=== PATIENT | male | born 1980 | race Caucasian/White ===

== ENCOUNTER 2020-04-10 13:11 | Emergency (ER) | payer OTHER, SELFPAY ==
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
[2020-04-10 13:29] VITALS: BP 134/85; PULSE 101; RESP 20; TEMP 37.3; O2SAT 98; BMI 26.4
--- NOTE | 2020-04-10 14:13 | PC.NURSE ---
Pt difficult stick r/t IVDA, joe furnace repairer helper at bedside to attempt EJ
[2020-04-10] MEDS: 0.9 % Sodium Chloride 1,000 ML 999 ML IV (14:24)
[2020-04-10 14:25] LABS: MANUAL DIFF FLAG NO
--- NOTE | 2020-04-10 14:29 | PC.NURSE ---
Mike LICENSING REPRESENTATIVE placed 20g R bicep via u/s
[2020-04-10 14:34] LABS: INTERNATIONAL NORM RATIO 1.1 (0.9-1.1); Prothrombin Time 12.5 SEC (10.8-13.0)
[2020-04-10 14:35] LABS: Basophils Absolute Auto 0.1 X10*3/uL (0.0-0.2); Basophils Percent Auto 0.5 % (0-2); Eosinophils Percent Auto 0.2 % (0-4); Hematocrit 43.1 % (42-52); Hemoglobin 13.8 g/dl (14.0-18.0); Imm Gran Abs Auto 0.03 X10*3/uL (0.00-0.03); Imm Gran Pct Auto 0.3 % (0.0-0.4); Lymphocytes Absolute Auto 2.3 X10*3/uL (1.2-4.9); Lymphocytes Percent Auto 23.7 % (20-40); Mean Corpuscular Hemoglobin 27.5 pg (27.0-33.0); Mean Platelet Volume 9.8 fL (9.4-12.4); Monocytes Absolute Auto 0.6 X10*3/uL (0.1-1.2); Monocytes Percent Auto 6.2 % (2-11); Neutrophils Absolute Auto 6.8 X10*3/uL (2.0-8.3); Neutrophils Percent Auto 69.1 % (45-73); Platelet Count 272 X10*3/uL (160-400); Red Blood Count 5.01 X10*6/uL (4.60-5.80); Red Cell Distribution Width 14.4 % (11.0-16.0); White Blood Count 9.8 X10*3/uL (4.8-10.8)
[2020-04-10 14:37] LABS: Partial Thromboplastin Time 35.7 SEC (24.1-38.0)
[2020-04-10] MEDS: Acetaminophen 325 MG TABLET 650 MG PO (14:41)
[2020-04-10 14:49] LABS: Alanine Aminotransferase 15 U/L (0-40); Albumin Level 4.1 g/dL (3.5-5.0); Alkaline Phosphatase 97 U/L (39-117); Anion Gap 13 (12-20); Aspartate Amino Transferase 26 U/L (5-37); Bilirubin Total 0.2 mg/dL (0.0-1.0); Blood Urea Nitrogen 12 mg/dL (9-16); Calcium 9.2 mg/dL (8.4-10.2); Carbon Dioxide 28 mmol/L (22-29); Chloride 104 mmol/L (96-108); Creatinine Clr Calc Pharmacy 135.8; Estimated Glomerular Filt Rate > 60; Glucose Random 86 mg/dL (60-115); Potassium 4.4 mmol/L (3.3-5.1); Sodium 141 mmol/L (135-145); Total Protein 7.9 g/dL (6.5-8.0)
[2020-04-10] MEDS: iohexoL 350 MG/ML 100 ML INFUS..BTL IV (15:16)
[2020-04-10 16:02] VITALS: BP 121/68; PULSE 61; RESP 20; TEMP 36.7; O2SAT 96
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
[2020-04-10 16:36] LABS: COVID-19 Test Negative (Negative); IDNOW Serial# 9DD0AD1C
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
== END 2020-04-10 16:49 | disposition home or self-care (01) ==
PROVIDERS: Nurse Practitioner Primary Care; Emergency Provider Emergency Medicine
DX: S00.81XA Abrasion of other part of head, initial encounter (principal); S00.03XA Contusion of scalp, initial encounter; S20.222A Contusion of left back wall of thorax, initial encounter; V03.00XA Pedestrian on foot injured in collision with car, pick-up truck or van in nontraffic accident, initial encounter; K59.00 Constipation, unspecified; Z20.822 Contact with and (suspected) exposure to COVID-19; Y93.89 Activity, other specified; Y92.414 Local residential or business street as the place of occurrence of the external cause; Y99.9 Unspecified external cause status
CPT/HCPCS: 36415; 70450; 71260; 72125; 74177; 80053; 85025; 85610; 85730; 87635; 96360; 99284; Q9967